=== PATIENT | male | born 1960 | race Caucasian/White ===

== ENCOUNTER 2017-02-06 20:20 | Emergency (ER) | payer BC ==
[~2017-02-06] VITALS: Ht 182.9 cm; Wt 111.1 kg
[~2017-02-06 20:20] MED LIST: NORCO 5-325 TA1 EACH PO; [UNRECOGNIZED DRUG - REMARK]
[2017-02-06 20:23] VITALS: BP 156/112
[2017-02-06] MEDS ORDERED: DEPO-TESTO100 MG/1 M IM (20:29)
[2017-02-06] MEDS ORDERED: NORCO 5-325 TA1 EACH PO (21:13)
== END 2017-02-06 21:29 | disposition home or self-care (01) ==
LOC: ER 20:20
DX: S76.111A Strain of right quadriceps muscle, fascia and tendon, initial encounter (principal); M19.90 Unspecified osteoarthritis, unspecified site; E78.00 Pure hypercholesterolemia, unspecified; Z90.89 Acquired absence of other organs; Z98.890 Other specified postprocedural states; Z88.0 Allergy status to penicillin; W10.9XXA Fall (on) (from) unspecified stairs and steps, initial encounter; Y93.89 Activity, other specified; Y92.89 Other specified places as the place of occurrence of the external cause; Y99.8 Other external cause status

== ENCOUNTER → 2018-12-14 | Outpatient (CLI) | payer OTHER ==
[~2018-12-14] MED LIST changes: +DEPO-TESTO100 MG/1 M IM
== END ==
LOC: CAT 10:05
DX: Z13.6 Encounter for screening for cardiovascular disorders (principal); E78.00 Pure hypercholesterolemia, unspecified; I25.10 Atherosclerotic heart disease of native coronary artery without angina pectoris

== ENCOUNTER → 2021-10-01 | Outpatient (CLI) | payer OTHER | LOC: CAT 13:28 | PROVIDERS: ATTEND Family Medicine | DX: Z13.6 Encounter for screening for cardiovascular disorders (principal); I25.10 Atherosclerotic heart disease of native coronary artery without angina pectoris; E78.00 Pure hypercholesterolemia, unspecified ==